=== PATIENT | female | born 1950 | race Caucasian/White ===

== ENCOUNTER → 2020-04-16 | Outpatient (CLI) | payer MEDICARE, OTHER | END | disposition home or self-care (01) | LOC: RAH 09:46 | PROVIDERS: ATTEND Nurse Practitioner Adult Health | DX: Z12.31 Encounter for screening mammogram for malignant neoplasm of breast (principal); N64.89 Other specified disorders of breast | CPT/HCPCS: 77067 ==

== ENCOUNTER 2021-08-04 15:49 | Emergency (ER) | payer OTHER ==
[~2021-08-04] VITALS: Ht 157.5 cm; Wt 69.9 kg
[2021-08-04] MEDS ORDERED: ACET1TAB25 PO (16:58)
[2021-08-04] MEDS ORDERED: HYDROCODONE/ACETAMINOPHEN 10/325 MG TAB PO ONE (17:00)
[2021-08-04 17:26] VITALS: BP 166/89
== END 2021-08-04 17:35 | disposition home or self-care (01) ==
LOC: EDH 15:49
DX: S42.201A Unspecified fracture of upper end of right humerus, initial encounter for closed fracture (principal); E03.9 Hypothyroidism, unspecified; I10 Essential (primary) hypertension; W18.39XA Other fall on same level, initial encounter; Y93.89 Activity, other specified; Y92.89 Other specified places as the place of occurrence of the external cause; Y99.8 Other external cause status
CPT/HCPCS: 29105; 73060

== ENCOUNTER → 2023-05-02 | Outpatient (CLI) | payer OTHER ==
[~2023-05-02] MED LIST: ACET-2079 PO
== END | disposition home or self-care (01) ==
LOC: RAH 13:35
PROVIDERS: ATTEND Nurse Practitioner Adult Health
DX: Z12.31 Encounter for screening mammogram for malignant neoplasm of breast (principal); R92.30 Dense breasts, unspecified; M81.0 Age-related osteoporosis without current pathological fracture; M85.88 Other specified disorders of bone density and structure, other site
CPT/HCPCS: 77067; 77080